=== PATIENT | female | born 1960 | race Caucasian/White ===

== ENCOUNTER 2017-04-16 16:47 | Outpatient (CLI) ==
[2014-10-25 08:48] VITALS: BMI 22.9
[2017-04-16 16:59] LABS: BASOPHILS # (AUTO) 0.1 K/uL (0-0.2); BASOPHILS % (AUTO) 1.1 % (0.0-3.0); EOSINOPHILS # (AUTO) 0.4 K/ul (0.0-0.7); EOSINOPHILS % (AUTO) 5.1 % (0.0-7.0); HEMOGLOBIN 12.3 g/dl (12.0-16.0); IMMATURE GRANULOCYTE % (AUTO) 0.4 % (0.0-5.0); LYMPHOCYTES # (AUTO) 2.1 K/uL (0.60-3.4); LYMPHOCYTES % (AUTO) 26.6 (10.0-50.0); MEAN CORPUSCULAR HGB CONC 33.2 (31.8-35.4); MEAN CORPUSCULAR VOLUME 81.3 fl (81.0-99.0); MONOCYTES # (AUTO) 0.6 K/uL (0.4-2.0); MONOCYTES % (AUTO) 7.4 (0-10); NEUTROPHILS # (AUTO) 4.7 K/ul (2.0-6.9); NEUTROPHILS % (AUTO) 59.4; PLATELET COUNT 204 10^3/uL (140-440); RED BLOOD COUNT 4.55 10^6/ul (4.20-5.40); WHITE BLOOD COUNT 7.89 K/ul (4.6-10.2)
[2017-04-16 17:14] LABS: ALBUMIN 3.7 g/dL (3.4-5.0); ALBUMIN/GLOBULIN RATIO 1.12; ANION GAP 11.2; BILIRUBIN,TOTAL 0.27 mg/dL (0.00-1.20); BUN/CREATININE RATIO 12.96; CALCIUM 9.3 mg/dL (8.2-10.2); CREATININE 1.08 mg/dL (0.60-1.30); POTASSIUM 4.2 mmol/L (3.5-5.10)
== END 2017-04-16 16:48 | disposition home or self-care (01) ==
LOC: LAB 16:47
PROVIDERS: ATTEND Family Medicine
DX: E78.2 Mixed hyperlipidemia (principal)
CPT/HCPCS: 36415; 80053; 85025

== ENCOUNTER 2017-07-06 07:28 | Outpatient (CLI) ==
[2014-10-25 08:48] VITALS: BMI 22.9
[2017-07-06 09:06] LABS: CHOL/HDL RATIO 3.1 (4.5-5.5); FOLATE 10.6 ng/mL (3.1-20.5)
[2017-07-06 09:09] LABS: ERYTHROCYTE SEDIMENTATION RATE 8 mm/hr (0-20); ESR INTERNAL QC INTERNAL QC VALID
[2017-07-06 09:56] LABS: CREATINE KINASE MB 0.6 ng/ml (0.0-3.6)
== END 2017-07-06 07:29 | disposition home or self-care (01) ==
LOC: LAB 07:28
PROVIDERS: ATTEND Psychiatry & Neurology Neurology
DX: H53.2 Diplopia (principal)
CPT/HCPCS: 36415; 80061; 82085; 82550; 82553; 82607; 82746; 83605; 83735; 84439; 85651

== ENCOUNTER 2018-06-13 12:02 | Outpatient (CLI) | payer OTHER ==
[2014-10-25 08:48] VITALS: BMI 22.9
== END 2018-06-13 12:03 | disposition home or self-care (01) ==
LOC: LAB 12:02
PROVIDERS: ATTEND Family Medicine
DX: M54.5 Low back pain (principal)
CPT/HCPCS: 81001; 87086

== ENCOUNTER 2018-08-15 12:03 | Outpatient (CLI) ==
[2014-10-25 08:48] VITALS: BMI 22.9
== END 2018-08-15 12:04 | disposition home or self-care (01) ==
LOC: LAB 12:03
PROVIDERS: ATTEND Family Medicine
DX: E78.5 Hyperlipidemia, unspecified (principal)
CPT/HCPCS: 36415; 80053; 80061; 82306; 85025

== ENCOUNTER 2018-09-29 15:57 | Outpatient (CLI) ==
[2014-10-25 08:48] VITALS: BMI 22.9
--- NOTE | 2018-09-29 21:46 | CT ---
EXAM: CT sinuses/facial bones without contrast HISTORY: Sinusitis COMPARISON: CT head 10/25/2014 TECHNIQUE: Serial axial images of the facial bones/sinuses were obtained without IV contrast. These were viewed in coronal, sagittal and axial planes. FINDINGS: The maxillary sinuses are clear. Sphenoid sinuses are clear. There is minimal mucosal th ickening in the left frontal sinus. The right frontal sinus is clear. There is mucosal thickening i n the ethmoid air cells. There is minimal leftward nasal septal deviation with a large leftward 0.6 cm nasal septal spur. Nasal turbinates are unremarkable. Ostiomeatal units are patent. Mastoid air cells are clear. Soft tissues are unremarkable. IMPRESSION: 1. No CT evidence of sinusitis with minimal mucosal thickening in the left frontal sinus and ethmoid air cells. 2. Minimal leftward nasal septal deviation with a large 0.6 cm leftward nasal septal spur. 3. The ostiomeatal units are patent.
== END 2018-09-29 15:58 | disposition home or self-care (01) ==
LOC: RAD 15:57
PROVIDERS: ATTEND Family Medicine
DX: J01.90 Acute sinusitis, unspecified (principal)